=== PATIENT | female | born 1960 | race Caucasian/White ===

== ENCOUNTER 2016-10-20 23:43 | Emergency (ER) | payer OTHER ==
[2016-10-20] MEDS ORDERED: ALBUTEROL SO4 2.5/IPRATROPIUM 0.5 INH SOL 3 ML VIAL.NEB. NEB ONE (23:46)
[2016-10-20] MEDS ORDERED: AZITHROMYCIN 250 MG TABLET (FP) PO ONE (23:47)
--- NOTE | 2016-10-20 23:52 | PDOC ---
History of Present Illness - General Chief Complaint: Pain, Acute Stated Complaint: SORE THROAT, EAR PAIN ,COUGH Time Seen by Provider: 10/20/16 23:46 History Source: Patient Exam Limitations: No Limitations - History of Present Illness Initial Comments: 10/20/16 23:49 This is a 55 her female who comes in complaining of cough 5 days, low-grade fever, sore throat and ear pain 2 days. Patient said has similar symptoms and has since recovered but now she is getting worse instead of better. Patient denies any chest pain, shortness of breath, nausea, vomiting, diarrhea. Patient denies any fevers over 100.0. Patient is otherwise healthy. PAST MEDICAL HISTORY: no significant history PAST SURGICAL HISTORY: no significant history FAMILY HISTORY: no pertinant history SOCIAL HISTORY: Pt lives with family and is employed. MEDICATIONS: reviewed ALLERGIES: As per nursing notes Review of Systems General: No fevers or chills, no weakness, no weight loss HEENT: No change in vision. + sore throat,. + ear pain CardioVascular: No chest pain or shortness of breath Respiratory:+ cough, or wheezing. Gastrointestinal: no nausea, vomitting, diarrhea or constipation, No rectal bleeding Genitourinary: No dysuria, hematuria, or frequency Musculoskeletal: No joint or muscle pain or swelling Neurologic: No headache, vertigo, dizziness or loss of consciousness Psychiatric: nor depression Skin: No rashes or easy bruising Endocrine: no increased thirst or abnormal weight change Allergic: no skin or latex allergy All other systems reviewed and normal Exam: General: Well-nourished well-developed individual, no acute distress HEENT: Throat: Tonsils are normal, there is some erythema of the posterior oropharynx are is no exudate. Neck: Supple, no meningeal signs, small nontender bilateral lymphadenopathy submandibular Eyes::Pupils equal reactive and round, extraocular motion intact Ears: Left ear is normal on exam, right ear there is some mild erythema of the tympanic membrane Chest: Nontender to palpation Cardiac: S1-S2 normal, regular rate and rhythm, no murmurs rubs or gallops Respiratory: There is good air entry bilateral with slight expiratory wheeze bilateral Abdomen: Soft, nondistended, normal bowel sounds, nontender to palpation diffusely Extremities: Warm, dry, no cyanosis, clubbing, or edema Skin: No rashes Neuro: Alert and oriented x3, nonfocal exam, grossly intact, normal gait Psych: Normal mood and affect Assessment and plan: This is a 55-year-old female with probable viral syndrome and an associated early right otitis media and some expiratory wheezing secondary to the viral syndrome. Patient given azithromycin here in the emergency room and a prescription to continue it for former days Patient given a DuoNeb with improvement in her cough and symptoms Patient discharged on a Ventolin inhaler prescription Patient also given 4 more days of azithromycin. Patient discharged home will follow-up with her primary care doctor Past History - Past Medical History Allergies/Adverse Reactions: Allergies Allergy/AdvReac Type Severity Reaction Status Date / Time No Known Allergies Allergy Verified 10/20/16 23:44 Home Medications: Ambulatory Orders Albuterol Sulfate Inhaler - [Ventolin Hfa Inhaler -] 1 - 2 inh PO QID #1 inhaler 10/20/16 Azithromycin 250 mg PO DAILY #4 tablet 10/20/16 Benzonatate [Tessalon Pearls -] 100 mg PO TID #21 capsule 10/20/16 *DC/Admit/Observation/Transfer Diagnosis at time of Disposition: Viral upper respiratory illness, Viral upper respiratory illness, Cough Right otitis media Qualifiers: Otitis media type: unspecified Chronicity: unspecified Qualified Code(s): H66.91 - Otitis media, unspecified, right ear - Discharge Dispostion Disposition: HOME Condition at time of disposition: Stable Admit: No - Patient Instructions Printed Discharge Instructions: DI for Viral Upper Respiratory Infection -- Adult, Middle Ear Infection Additional Instructions: Tylenol or Motrin as needed for pain or fevers. For the ear infection take azithromycin you were given a first dose here your next dose should be taken tomorrow night before going to bed. Take this for the next 4 days. You were given an inhaler use it 2 puffs as often as every 6 hours if needed for cough or wheezing. For the cough take Tessalon Perles 13 times a day. Return to the emergency department immediately with ANY new, persistent or worsening symptoms. Continue any medications as previously prescribed by your physician. You should follow up with your primary doctor as soon as possible regarding today's emergency department visit. . Please make sure your doctor reviews the results of your emergency evaluation. Thank you for coming to the Emergency Department today for your care. It was a pleasure to see you today. Please note that your evaluation is INCOMPLETE until you follow-up with your doctor.
[2016-10-21 00:05] VITALS: BP 159/89; PULSE 91; TEMP 98.9; BMI 24.7
== END 2016-10-21 00:19 | disposition home or self-care (01) ==
LOC: FER 23:43
PROC: 3E0F7GC Introduction of Other Therapeutic Substance into Respiratory Tract, Via Natural or Artificial Opening (ICD-10-PCS; principal; 2016-10-20)
DX: H66.91 Otitis media, unspecified, right ear (principal); J06.9 Acute upper respiratory infection, unspecified; B97.89 Other viral agents as the cause of diseases classified elsewhere
CPT/HCPCS: 99281-25